=== PATIENT | female | born 1970 | race Caucasian/White ===

== ENCOUNTER 2017-02-06 06:12 | Emergency (ER) | payer OTHER ==
--- NOTE | 2017-02-06 06:29 | ERNOTE ---
ENT HPI Date of Service: 02/06/17 Presenting Symptoms: other - sore throat Time Seen by Provider: 02/06/17 06:26 Source: patient - Immun/Allergies/Home Medications Immunizations: IMMUNIZATION HX Immunizations Up to Date Yes Allergies/Adverse Reactions: Allergies Allergy/AdvReac Type Severity Reaction Status Date / Time Unobtainable Allergy Unverified 02/06/17 06:18 Home Medications: HOME MEDICATIONS NK [No Home Medication] 02/06/17 [Last Taken Unknown] - History of Present Illness Narrative: This is a 46-year-old female who comes to the emergency department complaining of a sore throat. She says her throat but a little scratchy and a little irritated for a couple of days however around 5:00 this morning she woke up with a sensation like she was unable to breathe. It's extremely painful to swallow. She has not had a fever except perhaps last night. She did not check her temperature but says that she was having a great deal of chills. Has had no nausea or vomiting has not had a significant cough she does have a history of anxiety and not treated with anything. He has no other complaints Review of Systems - Review of Systems Constitutional: Present: chills EYE: Present: no symptoms reported ENT: Present: See HPI Respiratory: Present: no symptoms reported Cardiology: Present: no symptoms reported Gastrointestinal/Abdominal: Present: no symptoms reported Genitourinary: Present: no symptoms reported Musculoskeletal: Present: no symptoms reported Skin: Present: no symptoms reported Neurological: Present: no symptoms reported Endocrine: Present: no symptoms reported Hematologic/Lymphatic: Present: no symptoms reported Psych: Present: no symptoms reported All Other Systems: All systems neg except as marked - Patient's Past Medical History Patient History - Medical: No pertinent hx Patient History - Cardiac/Respiratory: No pertinent hx Patient History - Cancer: No Hx of Cancer Patient History - Surgical Procedures: No surgical history Patient History - Other: None - Social History Smoking Status: Never smoker Have you smoked in the past 12 months: No - Immunizations Immunizations Up to Date: Yes Physical Exam - Physical Exam General Appearance: Present: wd/wn, alert, no apparent distress Head Exam: Present: normal inspection, no evidence of injury Eye Exam: Normal inspection: bilateral, PERRL: bilateral, EOMI: bilateral Ears, Nose, Throat: Present: normal ENT inspection, pharyngeal erythema, other - mild pharyngeal erythema no tonsillar exudate no hypertrophy uvula rises in the midline no peritonsillar fullness. Absent: normal pharynx, pharyngeal swelling, tonsillar exudate Neck: Present: normal inspection, nontender Respiratory: Present: no respiratory distress, normal breath sounds, lungs clear Cardiovascular/Chest: Present: regular rate, rhythm, no murmur Gastrointestinal/Abdominal: Present: normal bowel sounds, nontender Back Exam: Present: normal inspection Extremity Exam: Present: normal inspection Skin Exam: Present: normal color, warm/dry Lymphatic Exam: Present: no adenopathy ED Progress - Results and Orders Patient's Lab Results:: I have reviewed the patient's lab results. - Vital Signs Patient's Vital Signs:: I have reviewed the patient's vital signs. Vital Signs: Vital Signs 02/06/17 06:15 Temperature 36.7 C Pulse Rate 101 H Respiratory 14 Rate Blood Pressure 150/86 O2 Sat by Pulse 97 Oximetry - Progress/Reassessment Chief Complaint: Sore Throat Progress:: Unchanged Departure Clinical Impression: Pharyngitis - Departure Disposition: Home self-care Condition: Good Instructions: Sore Throat Additional Instructions: As we discussed there is no signs of strep throat. I believe that the infection of her throat is caused by a virus. Your body is already fighting this off and this is the cause of the swelling and sensation like it hurts to swallow. He will likely start getting better over the next day or 2. I recommend that you use Cepacol lozenges to help soothe your throat. Hard candy can also be of assistance. Call your family doctor and set up a follow-up appointment. He develop high fever, vomiting, difficulty breathing, or any new concerning symptoms he should return to the ER immediately Referrals: Rui Brownlee MD [Primary Care Provider] -
[2017-02-06 07:01] VITALS: BP 148/78
== END 2017-02-06 06:57 | disposition home or self-care (01) ==
LOC: ER 06:12
DX: J02.9 Acute pharyngitis, unspecified (principal)